=== PATIENT | male | born 1995 | race Caucasian/White ===

== ENCOUNTER 2020-10-27 05:44 | Day surgery (SDC) | payer BC ==
[~2020-10-27] VITALS: Ht 180.3 cm; Wt 101.3 kg
[2020-10-27 06:14] VITALS: BP 127/67; PULSE 58; TEMP 98.8
[2020-10-27] MEDS ORDERED: MOTRIN 600600 MG/TAB PO (10:14)
[2020-10-27] MEDS ORDERED: NORCO 325 MG-51 TAB PO (10:14)
[2020-10-27 10:30] VITALS: BP 128/67; PULSE 84; TEMP 97.3
--- NOTE | 2020-10-27 10:30 | NUR ---
Patient [place] [facility] [place] [place], accompanied by [employer]IST Jen. He is lying in bed, awake, alert, oriented. He denies pain or nausea. He rolls to the side so his operative site is visible, it is covered by a clean/dry/intact dressing - no drainage noted. Monitoring is applied -VSS and WNL on room air. Lights are dimmed for comfort.
[2020-10-27 10:45] VITALS: BP 121/74; PULSE 72
--- NOTE | 2020-10-27 10:45 | NUR ---
VSS and WNL on room air. He is more awake. HOB is raised so he may eat/drink. He is offered and receives water and crackers to eat.
[2020-10-27 11:00] VITALS: BP 133/71; PULSE 73
--- NOTE | 2020-10-27 11:00 | NUR ---
VSS and WNL on room air. Patient is given another cup of water per request. He has ate crackers and drank 1 cup of water. He is tolerating PO well. Continues to deny pain.
[2020-10-27 11:15] VITALS: BP 124/69; PULSE 60
--- NOTE | 2020-10-27 11:21 | NUR ---
Patient requests and receives another glass of water at this time.
--- NOTE | 2020-10-27 11:39 | NUR ---
Patient puts his call light on and requests to use the restroom. He ambulates to the restroom with standby assist, voids, and returns to room. Gait is steady.
--- NOTE | 2020-10-27 12:05 | NUR ---
Discharge criteria has been met. Discharge instructions are discussed. He denies any questions and verbalizes understanding. He changes to his clothing independently. PIV was removed by Comfort Good RN. He is escorted to the exit via wheelchair by staff. His picks him up in private vehicle. He is discharged to home at 1205.
== END 2020-10-27 12:05 | disposition home or self-care (01) ==
LOC: SDCO 05:44
DX: L05.91 Pilonidal cyst without abscess (principal); F17.210 Nicotine dependence, cigarettes, uncomplicated
CPT/HCPCS: J0330; J0690; J1100; J1885; J2405; J2704; J3010; J7120